=== PATIENT | female | born 1990 | race African-American/Black ===

== ENCOUNTER 2016-11-07 17:41 | Emergency (ER) | payer MEDICAID ==
[~2016-11-07] VITALS: Ht 165.1 cm; Wt 61.0 kg
[2016-11-07] MEDS ORDERED: KETOROLAC 60MG/2ML VIAL IM ONE (22:45)
[2016-11-08 01:34] VITALS: BP 112/76
== END 2016-11-08 01:36 | disposition home or self-care (01) ==
LOC: ER 20:49
DX: M54.9 Dorsalgia, unspecified (principal); M25.512 Pain in left shoulder; R51 Headache; V89.2XXA Person injured in unspecified motor-vehicle accident, traffic, initial encounter; Y93.89 Activity, other specified; Y92.89 Other specified places as the place of occurrence of the external cause
CPT/HCPCS: 81025; 96372; 99283; J1885